=== PATIENT | female | born 1940 | race Caucasian/White ===

== ENCOUNTER 2016-09-09 19:13 | Emergency (ER) | payer MEDICARE, OTHER ==
[~2016-09-09] VITALS: Ht 157.5 cm; Wt 81.6 kg
[~2016-09-09 19:13] MED LIST: ALEN70TA45 PO; BLOO-668 IN; DEXL60CA3 PO; MECL-102 PO; MELO-264 PO; METF500T7 PO; METO-295 PO; OLOP2.5D EACHEYE; RANI150T8 PO; SERT50TA12 PO; SIMV20TA6 PO; TIMO5DRO4 EACHEYE; TRAM50TA2 PO; VALS1TAB50 PO
[2016-09-09 19:36] VITALS: BP 141/71
== END 2016-09-09 20:26 | disposition home or self-care (01) ==
LOC: ER 19:13
DX: B02.29 Other postherpetic nervous system involvement (principal); B02.9 Zoster without complications; E78.00 Pure hypercholesterolemia, unspecified; R20.2 Paresthesia of skin; I10 Essential (primary) hypertension; K21.9 Gastro-esophageal reflux disease without esophagitis; E11.9 Type 2 diabetes mellitus without complications
CPT/HCPCS: 99283; A4606; Z7610

== ENCOUNTER 2016-10-11 20:03 | Emergency (ER) | payer MEDICARE, OTHER ==
[~2016-10-11] VITALS: Ht 152.4 cm; Wt 81.6 kg
[2016-10-11 21:12] VITALS: BP 142/73
== END 2016-10-11 22:35 | disposition home or self-care (01) ==
LOC: ER 20:11
DX: R22.0 Localized swelling, mass and lump, head (principal); E11.9 Type 2 diabetes mellitus without complications; E78.00 Pure hypercholesterolemia, unspecified; K21.9 Gastro-esophageal reflux disease without esophagitis; I10 Essential (primary) hypertension
CPT/HCPCS: A4606; Z7502; Z7610

== ENCOUNTER 2019-06-02 19:51 | Emergency (ER) | payer MEDICARE, OTHER ==
[~2019-06-02] VITALS: Ht 162.6 cm; Wt 83.5 kg
[~2019-06-02 19:51] MED LIST changes: -ALEN70TA45 PO; +ALEN70TA6 PO; +MELO-107 PO; -MELO-264 PO; +METF500T20 PO; -METF500T7 PO; +SIMV-46 PO; -SIMV20TA6 PO; -VALS1TAB50 PO; +VALS1TAB6 PO
[2019-06-02 19:59] VITALS: BP 164/96
[2019-06-02] MEDS ORDERED: ACETAMINOPHEN 325 MG TABLET PO ONE (22:00)
[2019-06-02] MEDS ORDERED: ACETAMINOPHEN 325 MG TABLET ONE (22:14)
== END 2019-06-02 22:21 | disposition home or self-care (01) ==
LOC: ER 19:58
DX: S42.292A Other displaced fracture of upper end of left humerus, initial encounter for closed fracture (principal); F03.90 Unspecified dementia, unspecified severity, without behavioral disturbance, psychotic disturbance, mood disturbance, and anxiety; I10 Essential (primary) hypertension; E78.00 Pure hypercholesterolemia, unspecified; K21.9 Gastro-esophageal reflux disease without esophagitis; E11.9 Type 2 diabetes mellitus without complications; F32.9 Major depressive disorder, single episode, unspecified; F41.9 Anxiety disorder, unspecified; Z98.890 Other specified postprocedural states; Z79.84 Long term (current) use of oral hypoglycemic drugs; Z79.899 Other long term (current) drug therapy; W01.0XXA Fall on same level from slipping, tripping and stumbling without subsequent striking against object, initial encounter; Y93.01 Activity, walking, marching and hiking; Y92.481 Parking lot as the place of occurrence of the external cause; Y99.8 Other external cause status
CPT/HCPCS: 73000-TC; 73020; 73060-TC; 73564-TC

== ENCOUNTER 2019-11-10 17:41 | Inpatient (IN) | payer MEDICARE, OTHER ==
[~2019-11-10] VITALS: Ht 157.5 cm; Wt 69.6 kg
[~2019-11-10 17:41] MED LIST changes: -MECL-102 PO; +MECL-159 PO
--- NOTE | 2019-11-10 18:00 | NUR ---
PT BIB SON C/O LOWER BACK PAIN, UNABLE TO AMBULATE SINCE SATURDAY. EPIDURAL SHOT YESTERDAY, PT IS AAOX3 NEPALI SPEAKING ONLY, NOT IN RESPIRATORY DISTRESS, HOOKED TO CONTACT AND SERVICE CLERKS SUPERVISOR, KEPT RESTED AND COMFORTABLE, WILL CONTINUE TO MONITOR.
--- NOTE | 2019-11-10 18:02 | NUR ---
AT BEDSIDE FOR EVAL.
--- NOTE | 2019-11-10 18:15 | NUR ---
PT IV LINE ESTABLISHED, BLOOD DRAWN AND SENT TO LAB.
[2019-11-10 18:23] LABS: BASOPHILS # (AUTO) 0.1 /CMM (0.0-0.2); BASOPHILS % (AUTO) 0.4 % (0.0-2.0); EOSINOPHILS % (AUTO) 0.6 % (0.0-6.0); HEMATOCRIT 33 % (33-45); HEMOGLOBIN 10.6 g/dL (11.5-14.8); LYMPHOCYTES # (AUTO) 1.3 /CMM (0.8-4.8); LYMPHOCYTES % (AUTO) 6.9 % (20.0-44.0); MEAN CORPUSCULAR HGB CONC 32 g/dl (31.0-36.0); MEAN CORPUSCULAR VOLUME 81 fL (82-100); MONOCYTES # (AUTO) 0.8 /CMM (0.1-1.30); MONOCYTES % (AUTO) 4.4 % (2.0-12.0); NEUTROPHILS # (AUTO) 16.3 /CMM (1.8-8.9); NEUTROPHILS % (AUTO) 87.7 % (43.0-81.0); PLATELET COUNT (AUTO) 498 /CMM (150-450); RED BLOOD CELL COUNT(AUTO) 4.09 MIL/uL (4.0-5.2); WHITE BLOOD COUNT (AUTO) 18.6 K/uL (4.3-11.0)
--- NOTE | 2019-11-10 18:23 | NUR ---
BRAZE OPERATOR AT BEDSIDE FOR XRAY.
[2019-11-10] MEDS ORDERED: MORPHINE SULFATE INJ 4 MG/ML DISP.SYRIN ONE (18:25)
[2019-11-10] MEDS ORDERED: ONDANSETRON HCL/PF 4 MG/2 ML VIAL ONE (18:25)
--- NOTE | 2019-11-10 18:25 | NUR ---
PT IS WHEELED TO CT SCAN VIA [facility].
[2019-11-10] MEDS ORDERED: MORPHINE SULFATE INJ 2 MG/ML DISP.SYRIN IV ONE (18:30)
[2019-11-10] MEDS ORDERED: ONDANSETRON HCL/PF 4 MG/2 ML VIAL IVP ONE (18:30)
[2019-11-10 18:41] LABS: ALANINE AMINOTRANSFERASE 52 U/L (12-78); ALBUMIN 2.4 g/dL (3.4-5.0); ALKALINE PHOSPHATASE 167 U/L (46-116); ASPARTATE AMINOTRANSFERASE 50 U/L (15-37); BILIRUBIN,DIRECT 0.2 mg/dL (0.0-0.2); BILIRUBIN,TOTAL 0.7 mg/dL (0.2-1.0); CALCIUM, SERUM 9.6 mg/dL (8.5-10.1); CARBON DIOXIDE 24 mmol/L (21-32); CHLORIDE 94 mmol/L (98-107); CREATININE 0.8 mg/dL (0.6-1.3); GLUCOSE 153 mg/dL (74-106); SODIUM SERUM 131 mmol/L (136-145); TOTAL PROTEIN, SERUM 8.4 g/dL (6.4-8.2); UREA NITROGEN, BLOOD 19 mg/dL (7-18)
[2019-11-10 18:53] LABS: APPEARANCE,URINE Clear (CLEAR); BILIRUBIN,URINE Negative (NEGATIVE); BLOOD, URINE Trace-intact Ery/uL (NEGATIVE); COLOR,URINE Yellow (YELLOW); KETONES,URINE Negative (NEGATIVE); LEUKOCYTE ESTERASE ,URINE Negative (NEGATIVE); NITRITE, URINE Negative (NEGATIVE); PROTEIN,URINE Trace mg/dl (NEGATIVE); UGLUCOSE Negative (NEGATIVE); UROBILINOGEN,URINE 0.2 EU/dL (0.2)
[2019-11-10 19:04] LABS: THYROID STIMULATING HORMONE 1.487 uIU/mL (0.358-3.74)
--- NOTE | 2019-11-10 19:10 | NUR ---
REPORT GIVEN TO LISBETH ROJAS FOR BELINDA.
[2019-11-10 19:12] LABS: BACTERIA,URINE Few /HPF (None Seen); SQUAMOUS EPITHELIAL CELL,UR Few /HPF (None Seen); WBC,URINE NONE SEEN /HPF (0-3)
--- NOTE | 2019-11-10 19:53 | NUR ---
Patient is resting comfortably in Bed. Easily aroused. VSS. Son at bedside.
[2019-11-10] MEDS ORDERED: Z GUARD REMEDY 2 OZ OINT TP PRN (20:30)
[2019-11-10] MEDS ORDERED: MAG HYDROX/AL HYDROX/SIMETH 30 ML UDC PO PRN (20:30)
[2019-11-10] MEDS ORDERED: ACETAMINOPHEN 325 MG TABLET PO PRN (20:30)
[2019-11-10] MEDS ORDERED: ONDANSETRON HCL/PF 4 MG/2 ML VIAL IVP PRN (20:30)
--- NOTE | 2019-11-10 21:22 | NUR ---
REPORT GIVEN TO JONI BOB FOR BELINDA
[2019-11-10] MEDS ORDERED: ACET-54 PO (21:49)
[2019-11-10] MEDS ORDERED: ESCI20TA PO (21:49)
[2019-11-10] MEDS ORDERED: AMAN100T PO (21:49)
[2019-11-10] MEDS ORDERED: OMEP40CA13 PO (21:49)
[2019-11-10] MEDS ORDERED: SIMV-46 PO (21:49)
[2019-11-10] MEDS ORDERED: LORA-258 PO (21:49)
[2019-11-10] MEDS ORDERED: HYDR12.55 PO (21:49)
[2019-11-10] MEDS ORDERED: AMLO5TAB9 PO (21:49)
[2019-11-10 21:50] VITALS: BP 124/64
--- NOTE | 2019-11-10 21:50 | NUR ---
MS RN NOTES PATIENT ARRIVED TO THE UNIT AT 2150 VIA ACLS PROTOCOL. ESTONIAN SPEAKING ONLY. PATIENT ALERT AND ORIENTED X 3. PATIENT ON ROOM AIR, NO SIGNS OF DIFFICULTY BREATHING, SOB, AND WITH EVEN NON-LABORED BREATHING. PATIENT IV ACCESS ON RIGHT HAND 22G INTACT AND PATENT. PATIENT COMPLAINS OF LOWER BACK PAIN. PROVIDED COMFORT MEASURES TO PATIENT. SAFETY PRECAUTIONS IMPLEMENTED WITH THE BED IN THE LOWEST POSITION, BED LOCKED, BED ALARM ON, BILATERAL SIDE RAILS UP, AND CALL LIGHT WITHIN EASY REACH OF THE PATIENT. WILL CONTINUE TO MONITOR PATIENT.
[2019-11-10 22:00] VITALS: BP 123/64
[2019-11-10] MEDS: IV NS 0.9% 1,000 ML IV PRN (22:19)
[2019-11-10] MEDS: CEFTRIAXONE 1 G in IV D5W 50 ML IV SCH (22:19)
[2019-11-11] MEDS: MORPHINE SULFATE INJ 2 MG/ML DISP.SYRIN IV PRN ×5 (00:01→21:11)
--- NOTE | 2019-11-11 00:02 | NUR ---
MS RN NOTES PATIENT COMPLAINING OF 10/10 LOWER BACK PAIN, PROVIDED COMFORT MEASURES TO PATIENT PRIOR ADMINISTERING PRN IV MORPHINE 2mg/ml. PATIENT VITAL SIGNS WNL. BLOOD PRESSURE 124/64 PULSE 93 RESPIRATORY RATE 18 TEMPERATURE 98.7 SPO2 97%. WILL CONTINUE TO MONITOR AND REASSESS PATIENT PAIN LEVEL.
--- NOTE | 2019-11-11 05:39 | NUR ---
MS RN NOTES PATIENT MOANING AND GRASPING LOWER BACK, STATING SHE IS IN A LOT OF PAIN. PATIENTS STATES HER PAIN LEVEL IS 10/10. ADMINISTERED PRN PAIN, MEDICATION MORPHINE 2mg/ml. WILL CONTINUE TO MONITOR AND REASSESS PATIENT PAIN.
--- NOTE | 2019-11-11 06:16 | NUR ---
MS RN NOTES PATIENT STATES SHE IS UNCOMFORTABLE AND HAVING TROUBLE VOIDING. INFORMED AND NOTIFIED DEO AMIN NP ORDERED TO DO STRAIGHT CATHETERIZATION EVERY 4HR DUE TO URINARY RETENTION. WILL CONTINUE TO MONITOR PATIENT.
--- NOTE | 2019-11-11 06:55 | NUR ---
MS RN NOTES BLADDER SCAN DONE PRIOR STRAIGHT CATHETERIZATION. STRAIGHT CATHETER COMPLETED WITH 700 URINE OUTPUT WAS CLEAR, TEA COLOR/YELLOW URINE. WILL CONTINUE TO MONITOR PATIENT.
[2019-11-11 07:29] LABS: BASOPHILS % (AUTO) 0.3 % (0.0-2.0); EOSINOPHILS % (AUTO) 0.3 % (0.0-6.0); HEMATOCRIT 30 % (33-45); HEMOGLOBIN 9.6 g/dL (11.5-14.8); LYMPHOCYTES # (AUTO) 1.7 /CMM (0.8-4.8); LYMPHOCYTES % (AUTO) 12.3 % (20.0-44.0); MEAN CORPUSCULAR HGB CONC 32 g/dl (31.0-36.0); MEAN CORPUSCULAR VOLUME 81 fL (82-100); MONOCYTES # (AUTO) 0.7 /CMM (0.1-1.30); MONOCYTES % (AUTO) 5.2 % (2.0-12.0); NEUTROPHILS # (AUTO) 11.2 /CMM (1.8-8.9); NEUTROPHILS % (AUTO) 81.9 % (43.0-81.0); PLATELET COUNT (AUTO) 435 /CMM (150-450); WHITE BLOOD COUNT (AUTO) 13.7 K/uL (4.3-11.0)
--- NOTE | 2019-11-11 07:37 | NUR ---
MS RN NOTES PATIENT IN BED RESTING, EASILY AWAKEN BY NAME AND LIGHT TOUCH, ALERT AND ORIENTED X 3. PATIENT ON ROOM AIR WITH NO SIGNS OF SOB, AND WITH EVEN NON-LABORED BREATHING. PATIENT IV ACCESS IN PLACE AND INTACT RUNNING NS AT 75ml/hr. STRAIGHT CATHETER DONE, URINE OUTPUT OF 700ml. PATIENT SKIN KEPT CLEAN AND DRY. MET ALL OF PATIENT'S NEEDS. PROVIDED COMFORT MEASURES TO PATIENT. SAFETY PRECAUTIONS IMPLEMENTED WITH BED IN THE LOWEST POSITION, BILATERAL SIDE RAILS UP, BED ALARM ON, BED LOCKED AND CALL LIGHT WITHIN EASY REACH OF THE PATIENT. WILL ENDORSE PLAN OF CARE TO UPCOMING DAYSHIFT NURSE.
[2019-11-11 08:00] VITALS: BP 135/67
[2019-11-11 08:00] LABS: CALCIUM, SERUM 8.7 mg/dL (8.5-10.1); CREATININE 0.7 mg/dL (0.6-1.3); MAGNESIUM 1.8 mg/dL (1.8-2.4); PHOSPHORUS 3.9 mg/dL (2.5-4.9); POTASSIUM 3.6 mmol/L (3.5-5.1)
[2019-11-11 08:05] LABS: THYROID STIMULATING HORMONE 1.332 uIU/mL (0.358-3.74)
[2019-11-11] MEDS: PANTOPRAZOLE 40 MG TABLET.DR PO SCH (08:35)
[2019-11-11] MEDS: ENOXAPARIN SODIUM 40 MG/0.4 ML DISP.SYRIN SQ SCH (08:41)
--- NOTE | 2019-11-11 13:00 | NUR ---
MS RN NOTES SPOKE TO PATIENTS SON ASKING IF HAS ANY INFORMATION ON THE STIMULATOR THAT PATIENT HAS, SON STATES HE DOES NOT BUT HIS MOM HAS HAD MRI AFTER THE STIMULATOR WAS PLACED. CORRECTIONAL MEDICINE PHYSICIAN MADE AWARE WILL CONTINUE WITH MRI. PATIENT ALSO STATES SHE HAS HAD AN MRI AFTER THE STIMULATOR. WILL CONTINUE TO MONITOR.
--- NOTE | 2019-11-11 13:30 | NUR ---
MS RN NOTES SPOKE TO DR. LONA BOURGEOIS OFFICE WITH THE NURSE STATES STIMULATOR DOES NOT HAVE A BATTERY AND ITS OK FOR MRI. PATIENT TRANSFERRED TO MRI.
[2019-11-11] MEDS: IV NS 0.9% 1,000 ML IV PRN (14:34)
--- NOTE | 2019-11-11 16:30 | NUR ---
MS RN NOTES CALL RECEIVED FROM RADIOLOGY TO REPORT RESULTS OF MRI HAD RADIOLOGIST REPORT RESULTS TO DR. FLORIAN WHO HAS ASSESSED PATIENT. DR. FLORIAN STATES HE COMMUNICATED RESULTS TO DR. BHAGAT. WILL CONTINUE TO MONITOR.
[2019-11-11] MEDS: METHOCARBAMOL (500MG) 500 MG TABLET PO SCH (16:47)
--- NOTE | 2019-11-11 17:31 | NUR ---
MS RN NOTES BLADDER SCANNED NOTED WITH 700ML OF URINE IN BLADDER DR. BHAGAT MADE AWARE ORDERS OBTAINED FOR PIKE CATH. PIKE CATH INSERTED. PATIENT TOLERATED PROCEDURE WELL.
--- NOTE | 2019-11-11 18:52 | NUR ---
MS RN NOTES PATIENT IN BED RESTING NO SOB OR ACUTE DISTRESS NOTED. PATIENT ALERT, ORIENTED X3 ALBANIAN SPEAKING. PATIENT WITH INTACT PERIPHERAL IV, INTACT PATENT. PIKE CATH INTACT PATENT. DRAINING YELLOW CLEAR URINE. PATIENTS PAIN WAS CONTROLLED. ALL DUE MEDICATIONS ADMINISTERED. ALL NEEDS MET. WILL ENDORSE CARE TO PM SHIFT.
--- NOTE | 2019-11-11 19:40 | NUR ---
MS RN NOTES RECEIVED ON BED A/O X3,SPEAK VATICAN CITIZEN ,UNDERSTAND LITTLE SOUTH KOREAN,SALINE LOCK RIGHT HAND INTACT AND PATENT,NS AT 75 ML/HR RATE IN PROGRESS.PIKE CATH IN PLACE DRAINING YELLOWISH OUTPUT.C/O BACK PAIN,TOLERABLE AT THE MOMENT.DUE MEDS GIVEN,TAKEN WELL,NEGATIVE FOR ASPIRATION.CALL LIGHT IN REACH,NEEDS ANTICIPATED.
[2019-11-11] MEDS: FOLIC ACID 1 MG TABLET PO SCH (19:53)
[2019-11-11 20:00] VITALS: BP 119/64
[2019-11-11] MEDS: CEFTRIAXONE 1 G in IV D5W 50 ML IV SCH (20:51)
[2019-11-11] MEDS: SIMVASTATIN 20 MG TABLET PO SCH (21:11)
--- NOTE | 2019-11-11 21:11 | NUR ---
MS RN NOTES PAIN MANAGEMENT C/P MID BACK PAIN 8/10 ON PAIN SCALE,MEDICATED WITH MORPHINE 2MG IV ORDERED
[2019-11-11] MEDS: HYDROCODONE/APAP 5/325MG 1 EACH TABLET PO PRN (23:26)
--- NOTE | 2019-11-11 23:26 | NUR ---
MS RN NOTES PAIN MANAGEMENT HAVING PAIN AGAIN 7/10 ON PAIN SCALE,MEDICATED WITH NORCO 5/325MG,1 TAB PO ORDERED.
--- NOTE | 2019-11-12 00:55 | NUR ---
MS RN NOTES PAIN MANAGEMENT REPOSITION,IN SO MUCH PAIN 1-/10 ON PAIN SCALE,MEDICATED WITH NORCO 10/325,1 TAB GIVEN ORDERED.
[2019-11-12] MEDS: METHOCARBAMOL (500MG) 500 MG TABLET PO SCH ×3 (02:04→18:22)
[2019-11-12] MEDS: IV NS 0.9% 1,000 ML IV PRN ×2 (04:04→22:06)
--- NOTE | 2019-11-12 05:00 | NUR ---
MS RN NOTES STARTED ON 24 HOUR URINE FOR UPEP AND IFA.
--- NOTE | 2019-11-12 06:21 | NUR ---
MS RN NOTES ON BED SLEEPING.NORCO EFFECTIVE FOR PAIN MANAGEMENT.REFUSED REPOSITIONING DUE TO CHRONIC MID BACK PAIN.IVF IN PROGRESS,SITE REMAINS PATENT ON RIGHT HAND.CALL LIGHT IN REACH,NEEDS ATTENDED.
[2019-11-12 07:01] LABS: THYROID STIMULATING HORMONE 1.037 uIU/mL (0.358-3.74)
[2019-11-12 08:00] VITALS: BP 134/66
[2019-11-12] MEDS: FOLIC ACID 1 MG TABLET PO SCH (08:02)
[2019-11-12] MEDS: PANTOPRAZOLE 40 MG TABLET.DR PO SCH (08:02)
[2019-11-12] MEDS: HYDROCODONE/APAP 5/325MG 1 EACH TABLET PO PRN ×2 (08:03→20:10)
--- NOTE | 2019-11-12 08:03 | NUR ---
MS/RN NOTE THE PATIENT COMPLIANCE OF BACK PAIN 04/04. NORCO 5/325 1 TAB PO GIVEN. WILL CONTINUE TO MONITOR.
[2019-11-12] MEDS: ENOXAPARIN SODIUM 40 MG/0.4 ML DISP.SYRIN SQ SCH (08:10)
[2019-11-12 08:18] LABS: BASOPHILS # (AUTO) 0.1 /CMM (0.0-0.2); BASOPHILS % (AUTO) 0.5 % (0.0-2.0); EOSINOPHILS % (AUTO) 0.8 % (0.0-6.0); HEMATOCRIT 32 % (33-45); HEMOGLOBIN 10.1 g/dL (11.5-14.8); LYMPHOCYTES # (AUTO) 2.3 /CMM (0.8-4.8); LYMPHOCYTES % (AUTO) 22.5 % (20.0-44.0); MEAN CORPUSCULAR HGB CONC 32 g/dl (31.0-36.0); MEAN CORPUSCULAR VOLUME 81 fL (82-100); MONOCYTES # (AUTO) 0.7 /CMM (0.1-1.30); MONOCYTES % (AUTO) 6.9 % (2.0-12.0); NEUTROPHILS % (AUTO) 69.3 % (43.0-81.0); PLATELET COUNT (AUTO) 447 /CMM (150-450); RED BLOOD CELL COUNT(AUTO) 3.96 MIL/uL (4.0-5.2); WHITE BLOOD COUNT (AUTO) 10.1 K/uL (4.3-11.0)
[2019-11-12 08:21] LABS: CALCIUM, SERUM 8.6 mg/dL (8.5-10.1); CREATININE 0.7 mg/dL (0.6-1.3); MAGNESIUM 1.7 mg/dL (1.8-2.4); PHOSPHORUS 3.6 mg/dL (2.5-4.9)
--- NOTE | 2019-11-12 09:03 | NUR ---
MS/RN NOTE THE PATIENT VERBALIZED NORCO 5/325 1 TAB BEING EFFECTIVE AND RATED BACK PAIN 1/10.
--- NOTE | 2019-11-12 09:19 | NUR ---
MS/RN NOTE NEW ORDER FROM DR BHAGAT FOR CARDIAC DIET. NOTED AND CARRIED OUT
[2019-11-12] MEDS: MORPHINE SULFATE INJ 2 MG/ML DISP.SYRIN IV PRN ×3 (10:57→23:18)
--- NOTE | 2019-11-12 10:57 | NUR ---
MS/RN NOTE. THE PATIENT COMPLAINS OF BACK PAIN 05/05. MORPHINE SULFATE 2 MG IV PUSH GIVEN. WILL CONTINUE TO MONITOR.
--- NOTE | 2019-11-12 11:09 | NUR ---
MS/RN NOTE THE PATIENT IS TAKE TO RADIOLOGY DEPARTMENT FOR XR. THE PATIENT LEFT THE UNIT IN NO APPARENT DISTRESS.
--- NOTE | 2019-11-12 11:27 | NUR ---
MS/RN NOTE THE PATIENT VERBALIZED MORPHINE SULFATE BEING EFFECTIVE AND RATED PAIN 2/10.
--- NOTE | 2019-11-12 12:20 | NUR ---
MS/RN NOTE THE PATIENT IS BACK TO UNIT FROM RADIOLOGY DEPARTMENT. THE PATIENT DENIES PAIN. THE PATIENT IS IN NO APPRENT DISTRESS.
[2019-11-12] MEDS: Magnesium 1GM/D5W 100ML PREMIX 100 ML IV SCH ×2 (12:32→14:16)
[2019-11-12] MEDS: HYDROCODONE/APAP 10/325MG 1 EA TABLET PO PRN (14:20)
[2019-11-12 16:00] VITALS: BP_SYST 124; BP_SYST 141; BP_DIAS 63; BP_DIAS 74
[2019-11-12] MEDS ORDERED: GADOTERIDOL 279.3 MG/ML VIAL IV ONE (16:46)
--- NOTE | 2019-11-12 19:00 | NUR ---
MS/RN NOTE THE PATIENT IS ALERT AND ORIENTED X3. IN ROOM AIR AND SATURATION IS AT 97%. DENIES SOB. RESPIRATION REGULAR AND UNLABORED. DENIES PAIN. THE PATIENT IN NO APPARENT DISTRESS. RIGHT HAND G 20 PATENT AND NS INFUSING AT 75ML/HR AND NO S/S INFILTRATION NOTED. BED LOW AND LOCKED. SIDE RAILS UP X3. CALL LIGHT WITHIN REACH. WILL ENDORSE TO INTEGRATED MARKETING INTERN.
--- NOTE | 2019-11-12 19:26 | NUR ---
MS RN NOTES RECEIVED ON BED A/O X3,SPEAK JAPANESE,PAIN TOLERABLE AT THE MOMENT,IVF NS AT 75ML/HR RATE IN PROGRESS ON LEFT HAND VIA IV PUMP,SITE PATENT.CALL LIGHT IN REACH,NEEDS ANTICIPATED.
[2019-11-12 20:00] VITALS: BP 141/68
--- NOTE | 2019-11-12 20:00 | NUR ---
MS RN NOTES MD VISIT SEEN BY DR HARRIS,INFORMED PATIENT SON ABOUT BACTERIA IN THE BLOOD PER BLOOD CULTURE RESULT.WILL START ON IV VANCOMYCIN ORDERED BY DR BHAGAT,DAYTIME HOSPITALIST.
--- NOTE | 2019-11-12 20:10 | NUR ---
MS RN NOTES PAIN MANAGEMENT C/O MID LOWER BACK PAIN 7/10 ON PAIN SCALE,MEDICATED WITH NORCO 5/325,1 TAB PO GIVEN WITH APPLE SAUCE,TAKEN WELL
[2019-11-12] MEDS ORDERED: FEE PK DOSING 1 MIN EA MC ONE (20:35)
[2019-11-12] MEDS: CEFTRIAXONE 1 G in IV D5W 50 ML IV SCH (20:48)
[2019-11-12] MEDS ORDERED: VANCOMYCIN 1.25 GM in IV D5W 250 ML IV ONE (22:00)
--- NOTE | 2019-11-12 22:00 | NUR ---
MS RN NOTES STARTED ON VANCOMYCIN 1.25MG IV ORDERED.
[2019-11-12] MEDS: SIMVASTATIN 20 MG TABLET PO SCH (22:01)
--- NOTE | 2019-11-12 23:00 | NUR ---
MS RN NOTES OFFERED REPOSITIONING BUT REFUSED
--- NOTE | 2019-11-12 23:18 | NUR ---
MS RN NOTES PAIN MANAGEMENT CO MID LOWER BACK APIN,MEDICATED WITH MORPHINE 2MG IV ORDERED.
[2019-11-13] MEDS: METHOCARBAMOL (500MG) 500 MG TABLET PO SCH ×3 (00:21→15:36)
[2019-11-13] MEDS: HYDROCODONE/APAP 10/325MG 1 EA TABLET PO PRN ×3 (00:55→21:20)
[2019-11-13] MEDS: LIDOCAINE 5% (PATCH) 1 EA PATCH TP SCH ×2 (02:05→06:01)
[2019-11-13] MEDS: MORPHINE SULFATE INJ 2 MG/ML DISP.SYRIN IV PRN ×4 (04:12→19:59)
--- NOTE | 2019-11-13 04:12 | NUR ---
MS RN NOTES AWAKE,C/O INTRACTABLE LOWER BACK PAIN,MEDICATED WITH MORPHINE 2MG IV ORDERED.
--- NOTE | 2019-11-13 05:00 | NUR ---
MS RN NOTES 24 HOUR COLLECTION COMPLETED FOR UPEP + IFA.OBTAIN 2500ML SENT TO LAB.
[2019-11-13 06:06] LABS: IMMUNOGLOBULIN A, SERUM 417 mg/dL (64-422); IMMUNOGLOBULIN G, SERUM 1386 mg/dL (700-1600); IMMUNOGLOBULIN M, SERUM 110 mg/dL (26-217)
--- NOTE | 2019-11-13 06:26 | NUR ---
MS RN NOTES ON BED SLEEPING,AROUSABLE TO VERBAL STIMULI.STILL WITH ON AND OFF MID LOWER BACK PAIN,STARTED ON LIDODERM PATCH 5% AT 0600.IV ABX TOLERATED WELL.IN NO ACUTE DISTRESS.WILL ENDORSE TO DAY NURSE FOR BELINDA.
[2019-11-13 06:30] LABS: BASOPHILS # (AUTO) 0.1 /CMM (0.0-0.2); BASOPHILS % (AUTO) 0.7 % (0.0-2.0); EOSINOPHILS % (AUTO) 0.8 % (0.0-6.0); HEMATOCRIT 31 % (33-45); HEMOGLOBIN 9.9 g/dL (11.5-14.8); LYMPHOCYTES % (AUTO) 19.6 % (20.0-44.0); MEAN CORPUSCULAR HGB CONC 32 g/dl (31.0-36.0); MEAN CORPUSCULAR VOLUME 81 fL (82-100); MONOCYTES # (AUTO) 0.6 /CMM (0.1-1.30); MONOCYTES % (AUTO) 5.8 % (2.0-12.0); NEUTROPHILS # (AUTO) 7.6 /CMM (1.8-8.9); NEUTROPHILS % (AUTO) 73.1 % (43.0-81.0); PLATELET COUNT (AUTO) 447 /CMM (150-450); RED BLOOD CELL COUNT(AUTO) 3.86 MIL/uL (4.0-5.2); WHITE BLOOD COUNT (AUTO) 10.3 K/uL (4.3-11.0)
[2019-11-13 06:46] LABS: CALCIUM, SERUM 8.2 mg/dL (8.5-10.1); CREATININE 0.6 mg/dL (0.6-1.3); MAGNESIUM 1.9 mg/dL (1.8-2.4); PHOSPHORUS 3.6 mg/dL (2.5-4.9); POTASSIUM 3.9 mmol/L (3.5-5.1)
[2019-11-13 07:06] LABS: AFP, TUMOR MARKER 1.5 ng/mL (0.0-8.3)
[2019-11-13] MEDS: PANTOPRAZOLE 40 MG TABLET.DR PO SCH (07:30)
[2019-11-13 08:00] VITALS: BP_SYST 135; BP_DIAS 62; BP_DIAS 66
[2019-11-13] MEDS: FOLIC ACID 1 MG TABLET PO SCH (08:44)
[2019-11-13] MEDS: ENOXAPARIN SODIUM 40 MG/0.4 ML DISP.SYRIN SQ SCH (08:48)
--- NOTE | 2019-11-13 11:00 | NUR ---
Patient's family wants to contact with hospitalist. Paged pt's daughter number for updates .
[2019-11-13 11:06] LABS: *SPE A/G RATIO 0.5 (0.7-1.7); *SPE ALBUMIN 2.2 g/dL (2.9-4.4); *SPE ALPHA-1-GLOBULIN 0.5 g/dL (0.0-0.4); *SPE ALPHA-2-GLOBULIN 1.3 g/dL (0.4-1.0); *SPE BETA GLOBULIN 1.1 g/dL (0.7-1.3); *SPE GLOBULIN, TOTAL 4.1 g/dL (2.2-3.9); *SPE M-SPIKE Not Observed g/dL (Not Observed); *SPEGAMMA GLOBULIN 1.3 g/dL (0.4-1.8)
[2019-11-13] MEDS: HYDROCODONE/APAP 5/325MG 1 EACH TABLET PO PRN (12:47)
[2019-11-13] MEDS: IV NS 0.9% 1,000 ML IV PRN (13:58)
--- NOTE | 2019-11-13 15:20 | NUR ---
spoke with the family and explained plan of care as family requested
[2019-11-13] MEDS: MAGNESIUM HYDROXIDE 30 ML UDC PO PRN (15:36)
[2019-11-13 16:00] VITALS: BP 156/68
[2019-11-13] MEDS ORDERED: VANCOMYCIN 1 GM in IV D5W 250 ML IV SCH (16:00)
--- NOTE | 2019-11-13 18:40 | NUR ---
patient ON BED, FLAT POSITION,A/O X3,SPEAK MALAWIAN,PAIN TOLERABLE AT THE MOMENT,IVF NS AT 75ML/HR RATE IN PROGRESS ON LEFT HAND VIA IV PUMP,SITE PATENT.CALL LIGHT IN REACH,NEEDS ANTICIPATED, PAIN MANAGEMENT IMPLEMENTED.PATIENT REFUSING TO BE TURNED AND REPOSITIONED
--- NOTE | 2019-11-13 19:16 | NUR ---
MS/RN OPENING NOTES RECEIVED PATIENT IN BED, AWAKE, ALERT X3, SLOVAK SPEAKING , ABLE TO MAKE GOOD EYE CONTACT AND RESPOND WITH NOD , NO GUARDING OR GRIMACE OBSERVED AT THIS TIME, OBSERVE LYING DOWN FLAT .
[2019-11-13 20:00] VITALS: BP 141/58
--- NOTE | 2019-11-13 20:00 | NUR ---
MS/RN NOTES PATIENT REPORTED OF SEVERE PAIN, VITAL SIGNS CHECK, AWAKE, ALERT X3.
[2019-11-13 20:21] VITALS: BP 141/58
[2019-11-13] MEDS: CEFTRIAXONE 2 G in IV D5W 100 ML IV SCH (20:38)
[2019-11-13] MEDS ORDERED: CEFTRIAXONE 2 G in IV D5W 50 ML IV SCH (21:00)
[2019-11-13] MEDS: SIMVASTATIN 20 MG TABLET PO SCH (21:13)
--- NOTE | 2019-11-13 21:30 | NUR ---
MS/RN NATHAN PATIENT WITH SEVERE PAIN AND BREAK THROUGH PAIN GIVEN COMFORT MEASURES PROVIDED, WARM COMPRESS AND OFFERED DRINK AND SNACK.TO MONITOR.
[2019-11-14] MEDS: METHOCARBAMOL (500MG) 500 MG TABLET PO SCH ×3 (01:38→16:28)
[2019-11-14] MEDS: LIDOCAINE 5% (PATCH) 1 EA PATCH TP SCH (02:24)
[2019-11-14 03:08] LABS: CARBOHYDRATE AG 19-9 7 U/mL (0-35)
[2019-11-14] MEDS: MORPHINE SULFATE INJ 2 MG/ML DISP.SYRIN IV PRN ×2 (03:59→10:39)
--- NOTE | 2019-11-14 04:04 | NUR ---
MS/RN NOTES PATIENT AWAKEN FROM SLEEP. WITH PAIN, MORPHINE 2MG/REQUESTER PRESCRIBED NEEDED. TO MONITOR. REFUSE TO BE TURNED DUE TO PAIN.
[2019-11-14] MEDS: IV NS 0.9% 1,000 ML IV PRN ×2 (04:10→21:01)
[2019-11-14] MEDS: HYDROCODONE/APAP 10/325MG 1 EA TABLET PO PRN (05:59)
--- NOTE | 2019-11-14 06:02 | NUR ---
MS/RN NOTES BREAK THROUGH PAIN REQUESTED FOR PAIN IN LOWER BACK. NEEDED NORCO 10-325 MG PO FOR SEVERE PAIN. TOLERATED MEDICATION WITH WATER.
--- NOTE | 2019-11-14 06:24 | NUR ---
324-2 MS/RN CLOSING NOTES PATIENT SLEPT INTERNITENTLY WITH PAIN BEING MANAGED BY PRESCRIBED MEDICATION OF MORPHINE IVP AND NORCO 10-325 MG PO FOR BREAKTHROUGH. MONITORED FOR PAIN RELIEF. PATIENT REFUSED TO BE TURNED, ON PIKE CATHETER DRAIN YELLOW COLOR URINE. BED LOCKED, CALL LIGHTS WITHIN REACH. WILL ENDORSE TO AM RN FOR BELINDA.
[2019-11-14 07:16] LABS: CALCIUM, SERUM 8.3 mg/dL (8.5-10.1); CREATININE 0.6 mg/dL (0.6-1.3); POTASSIUM 4.2 mmol/L (3.5-5.1)
--- NOTE | 2019-11-14 07:33 | NUR ---
MS RN OPENING NOTES RECEIVED PATIENT IN BED, ASLEEP. PATIENT ON ROOM AIR BREATHING NORMAL WITH NO SIGNS OF ACUTE DISTRESS OR SOB AT THIS TIME. NO SIGNS OF PAIN SUCH FACIAL GRIMACING OR GUARDING NOTED. PIKE CATH IN PLACE; YELLOW URINE DRAINING TO GRAVITY. SAFETY PRECAUTIONS IN PLACE; BED IN LOW POSITION AND LOCKED, RAILS UP X2, CALL LIGHT WITHIN REACH. WILL CONTINUE TO MONITOR PATIENT.
[2019-11-14] MEDS: PANTOPRAZOLE 40 MG TABLET.DR PO SCH (07:47)
[2019-11-14] MEDS: FOLIC ACID 1 MG TABLET PO SCH (08:11)
[2019-11-14] MEDS: ENOXAPARIN SODIUM 40 MG/0.4 ML DISP.SYRIN SQ SCH (08:13)
[2019-11-14 08:18] VITALS: BP 147/59
--- NOTE | 2019-11-14 11:54 | NUR ---
MS RN NOTES PATIENT WAS COMPLAINING OF LOWER BACK PAIN 05/05. PRN MORPHINE WAS GIVE. REASSESSMENT AT 1110 PATIENT SAID IT GOT BETTER. AT THIS MOMENT PATIENT CALLING AND ALMOST CRYING THAT SHE HAS PAIN AGAIN AND NEEDS MORE PAIN RELIEF. DISCUSSED WITH CHARGE NURSE. PRN NORCO 5-325 ADMINISTERED. WILL REASSESS.
[2019-11-14] MEDS: HYDROCODONE/APAP 5/325MG 1 EACH TABLET PO PRN ×2 (11:56→21:21)
[2019-11-14] MEDS: MAGNESIUM HYDROXIDE 30 ML UDC PO PRN (15:11)
[2019-11-14 16:00] VITALS: BP 148/59
--- NOTE | 2019-11-14 19:07 | NUR ---
MS RN CLOSING NOTES PATIENT IN BED, AWAKE, A/O X2, WATCHING TV. PATIENT ON ROOM AIR BREATHING NORMAL WITH NO SIGNS OF ACUTE DISTRESS OR SOB AT THIS TIME. MILD PAIN PRESENT BUT NO REQUEST OF PAIN RELIEF AT THIS TIME. THROUGHOUT THE DAY PRN PAIN MEDICATION ADMINISTERED PER MD ORDER. PIKE CATH IN PLACE; YELLOW URINE DRAINING TO GRAVITY. ALL NEEDS ATTENDED TO THROUGHOUT THE DAY. SAFETY PRECAUTIONS REMAIN IN PLACE; BED IN LOW POSITION AND LOCKED, RAILS UP X2, CALL LIGHT WITHIN REACH. WILL ENDORSE TO LION TRAINER NURSE.
--- NOTE | 2019-11-14 19:25 | NUR ---
MS RN NOTES PATIENT RECEIVED IN BED, ALERT AND ORIENTED X 3, GREEK SPEAKING ONLY. PATIENT ON ROOM AIR WITH NO SIGNS OF RESPIRATORY DISTRESS, NO SIGNS OF SOB, AND WITH EVEN NON-LABORED BREATHING. PATIENT IV ACCESS INTACT AND PATENT RUNNING, NS AT 75ml/hr. PATIENT PIKE IN PLACE AND WITH CLEAR, YELLOW URINE OUTPUT. PROVIDED COMFORT MEASURES TO PATIENT. SAFETY PRECAUTIONS IMPLEMENTED WITH BED IN THE LOWEST POSITION, BILATERAL SIDE RAILS UP, BED LOCKED, BED ALARM ON, AND CALL LIGHT WITHIN EASY REACH OF THE PATIENT. WILL CONTINUE TO MONITOR PATIENT.
[2019-11-14 20:00] VITALS: BP 142/64
[2019-11-14] MEDS: SIMVASTATIN 20 MG TABLET PO SCH (21:08)
[2019-11-14] MEDS: CEFTRIAXONE 2 G in IV D5W 100 ML IV SCH (21:08)
--- NOTE | 2019-11-14 21:21 | NUR ---
MS RN NOTES PATIENT STATES SHARP PAIN LOCATED ON HER LOWER BACK AND ABDOMEN, RATING 7/10. PROVIDED COMFORT MEASURES TO PATIENT. ADMINISTERED PRN PAIN MEDICATION NORCO 5-325, 1 TABLET. VITAL SIGNS 142/64 PULSE 99, RESPIRATORY RATE 18, SPO2 96% ON ROOM AIR. WILL REASSESS PATIENT PAIN LEVEL AND WILL CONTINUE TO MONITOR PATIENT.
[2019-11-15] MEDS: METHOCARBAMOL (500MG) 500 MG TABLET PO SCH ×3 (01:01→16:18)
[2019-11-15] MEDS: MORPHINE SULFATE INJ 2 MG/ML DISP.SYRIN IV PRN ×2 (01:08→15:27)
--- NOTE | 2019-11-15 01:35 | NUR ---
MS RN NOTES PATIENT'S STATING 10/10 SHARP PAIN IN HER BACK. PROVIDED COMFORT MEASURES TO PATIENT, VITAL SIGNS BLOOD PRESSURE 152/58 PULSE 101 AND RESPIRATORY RATE 18. ADMINISTERED IV MORPHINE 2mg/ml, WILL REASSESS PATIENT PAIN LEVEL AND WILL CONTINUE TO MONITOR PATIENT.
[2019-11-15] MEDS: LIDOCAINE 5% (PATCH) 1 EA PATCH TP SCH (01:42)
[2019-11-15] MEDS: HYDROCODONE/APAP 10/325MG 1 EA TABLET PO PRN ×3 (04:03→18:26)
[2019-11-15] MEDS: HYDROCODONE/APAP 5/325MG 1 EACH TABLET PO PRN (07:00)
--- NOTE | 2019-11-15 07:08 | NUR ---
MS RN NOTES PATIENT ALERT AND ORIENTED X 3, NORTH KOREAN SPEAKING ONLY. PATIENT ON ROOM AIR WITH NO SIGNS OF RESPIRATORY DISTRESS WITH EVEN NON-LABORED BREATHING. PATIENT IV ACCESS INTACT AND PATENT, RUNNING NS AT 75 ml/hr. PATIENT SKIN KEPT CLEAN AND DRY, PROVIDED COMFORT MEASURES AND MET ALL OF PATIENT NEEDS. PIKE CATHETER IN PLACE WITH CLEAR, YELLOW URINE OUTPUT. SAFETY PRECAUTIONS IMPLEMENTED WITH BED IN THE LOWEST POSITION, BILATERAL SIDE RAILS UP, BED LOCKED, BED ALARM ON, AND CALL LIGHT WITHIN EASY REACH OF THE PATIENT. WILL ENDORSE BELINDA TO UPCOMING DAYSHIFT NURSE.
[2019-11-15 07:15] LABS: CALCIUM, SERUM 8.4 mg/dL (8.5-10.1); CREATININE 0.6 mg/dL (0.6-1.3); POTASSIUM 4.4 mmol/L (3.5-5.1)
--- NOTE | 2019-11-15 07:20 | NUR ---
MS RN OPENING NOTES RECEIVED PATIENT IN BED, AWAKE, A/O X2. PATIENT ON ROOM AIR BREATHING NORMAL WITH NO SIGNS OF ACUTE DISTRESS OR SOB AT THIS TIME. NO SIGNS OF PAIN SUCH FACIAL GRIMACING OR GUARDING NOTED. PIKE CATH IN PLACE; YELLOW URINE DRAINING TO GRAVITY. SAFETY PRECAUTIONS IN PLACE; BED IN LOW POSITION AND LOCKED, RAILS UP X2, CALL LIGHT WITHIN REACH. WILL CONTINUE TO MONITOR PATIENT.
[2019-11-15] MEDS: PANTOPRAZOLE 40 MG TABLET.DR PO SCH (07:50)
[2019-11-15 08:00] VITALS: BP 131/76
--- NOTE | 2019-11-15 08:03 | NUR ---
MS RN NOTES FED THE PATIENT. PATIENT SAID SHE IS STILL CONSTIPATED AND WANTS MEDICATION FOR CONSTIPATION. WILL ADMINISTER PRN MILK OF MAGNESIA. WILL KEEP MONITORING.
[2019-11-15] MEDS: MAGNESIUM HYDROXIDE 30 ML UDC PO PRN ×2 (08:07→16:22)
[2019-11-15] MEDS: FOLIC ACID 1 MG TABLET PO SCH (08:14)
[2019-11-15] MEDS: ENOXAPARIN SODIUM 40 MG/0.4 ML DISP.SYRIN SQ SCH (08:14)
--- NOTE | 2019-11-15 11:28 | NUR ---
MS RN NOTES PATIENT REPORTS SEVERE PAIN 8 OUT OF 10. REQUESTED PAIN MEDICATION. PRN NORCO 10-325 ADMINISTERED. WILL REASSESS.
[2019-11-15] MEDS ORDERED: IOHEXOL-300 100 ML VIAL IV ONE (13:12)
[2019-11-15] MEDS ORDERED: IV NS 0.9% 250 ML IV ONE (13:12)
--- NOTE | 2019-11-15 15:28 | NUR ---
MS RN NOTES PATIENT REPORTS SEVERE PAIN 10 OUT OF 10 IN HER BACK. REQUESTED PAIN MEDICATION. PRN MORPHINE 2 MG ADMINISTERED. WILL REASSESS.
[2019-11-15 16:00] VITALS: BP 146/66
[2019-11-15] MEDS ORDERED: GADOTERIDOL 279.3 MG/ML VIAL IV ONE (18:49)
--- NOTE | 2019-11-15 19:51 | NUR ---
MS HAZARD WASTE HANDLER NOTES PATIENT TRANSFERED TO [facility] FOR FURTHER EVALUATION AND POSSIBLE PROCEDURE IN MEDICALLY STABLE CONDITION. VITAL SIGNS WNL. ALL DOCUMENTATION READY AND SIGNED BY PATIENT. PATIENT RECEIVED ALL INSTRUCTIONS AND FAMILY MEMBERS NOTIFIED. VALUABLE FORM SIGNED. REPORT GIVEN TO SANDEEP AT [facility]. PATIENT LEFT THE FLOOR VIA GURNEY ACCOMPANIED BY 2 escalation engineer.
[2019-11-16 12:08] LABS: *IFEU ALPHA-2-GLOBULIN 18.6 % (.)
[2019-11-17 06:06] LABS: HIV SCRN 4G wRFX Non Reactive (Non Reactive)
== END 2019-11-15 18:50 | disposition short-term general hospital (02) | DRG 871 ==
LOC: ER 17:43 → MED 20:39
PROVIDERS: ADMIT Registered Nurse; ATTEND Internal Medicine
DX: A40.9 Streptococcal sepsis, unspecified (principal); N17.0 Acute kidney failure with tubular necrosis; M46.24 Osteomyelitis of vertebra, thoracic region; E87.1 Hypo-osmolality and hyponatremia; G20 Parkinson's disease; E78.5 Hyperlipidemia, unspecified; I10 Essential (primary) hypertension; K21.9 Gastro-esophageal reflux disease without esophagitis; M48.54XS Collapsed vertebra, not elsewhere classified, thoracic region, sequela of fracture; M46.44 Discitis, unspecified, thoracic region; D50.9 Iron deficiency anemia, unspecified; D47.3 Essential (hemorrhagic) thrombocythemia; R74.0 Nonspecific elevation of levels of transaminase and lactic acid dehydrogenase [LDH]; E86.1 Hypovolemia; R53.1 Weakness; E66.9 Obesity, unspecified; Z68.28 Body mass index [BMI] 28.0-28.9, adult; M47.26 Other spondylosis with radiculopathy, lumbar region; G89.4 Chronic pain syndrome; E86.0 Dehydration; E11.69 Type 2 diabetes mellitus with other specified complication
CPT/HCPCS: 36415; 70450-TC; 71045-TC; 71260-TC; 72131-TC; 72157-TC; 72158-TC; 77075-TC; 80048-TC; 80061-TC; 80076-TC; 81000-TC; 82105; 82378; 82728-TC; 82784; 83540-TC; 83690-TC; 83735-TC; 84100-TC; 84155; 84165; 84443-TC; 84484-TC; 85025-TC; 85730-TC; 86301; 86334; 86706; 86803; 87040-TC; 87081-TC; 87086-TC; 87186-TC; 87340; 93307-TC; A9579; G0378; J0696; J1650; J2270; J2405; J3370; J3475; J7030; J7040; J7050; J7060; Q9967

== ENCOUNTER 2024-03-24 20:35 | Inpatient (IN) | payer MEDICARE, OTHER ==
[~2024-03-24] VITALS: Ht 154.9 cm; Wt 82.1 kg
[~2024-03-24 20:35] MED LIST changes: +ACET-54 PO; -ALEN70TA6 PO; +AMAN100T PO; +AMLO-212 PO; -BLOO-668 IN; -DEXL60CA3 PO; +ESCI20TA PO; +HYDR12.55 PO; +LORA-258 PO; -MECL-159 PO; -MELO-107 PO; -METF500T20 PO; -METO-295 PO; -OLOP2.5D EACHEYE; +OMEP40CA21 PO; -RANI150T8 PO; -SERT50TA12 PO; -TIMO5DRO4 EACHEYE; -TRAM50TA2 PO; -VALS1TAB6 PO
[2024-03-24 21:20] LABS: BASOPHILS # (AUTO) 0.1 K/uL (0.0-0.2); BASOPHILS % (AUTO) 0.9 % (0.0-2.0); EOSINOPHILS # (AUTO) 0.2 K/uL (0.0-0.7); EOSINOPHILS % (AUTO) 2.2 % (0.0-6.0); HEMATOCRIT 36 % (33-45); LYMPHOCYTES # (AUTO) 2.5 K/uL (0.8-4.8); LYMPHOCYTES % (AUTO) 26.8 % (20.0-44.0); MEAN CORPUSCULAR HEMOGLOBIN 28 PG (26.0-33.0); MEAN CORPUSCULAR HGB CONC 33 g/dl (31.0-36.0); MEAN CORPUSCULAR VOLUME 86 fL (82-100); MONOCYTES # (AUTO) 0.7 K/uL (0.1-1.30); MONOCYTES % (AUTO) 7.7 % (2.0-12.0); NEUTROPHILS # (AUTO) 5.8 K/uL (1.8-8.9); NEUTROPHILS % (AUTO) 62.4 % (43.0-81.0); PLATELET COUNT (AUTO) 236 K/uL (150-450); RED BLOOD CELL COUNT(AUTO) 4.26 MIL/uL (4.0-5.2); RED CELL DISTRIBUTION WIDTH 13.8 % (11.5-15.0); WHITE BLOOD COUNT (AUTO) 9.2 K/uL (4.3-11.0)
[2024-03-24 21:26] LABS: POTASSIUM 4.7 mmol/L (3.5-5.1)
[2024-03-24 21:28] LABS: CALCIUM, SERUM 9.5 mg/dL (8.5-10.1); CARBON DIOXIDE 29 mmol/L (21-32); CHLORIDE 105 mmol/L (98-107); CREATININE 0.9 mg/dL (0.6-1.3); GLUCOSE 138 mg/dL (74-106); SODIUM SERUM 138 mmol/L (136-145); UREA NITROGEN, BLOOD 30 mg/dL (7-18)
[2024-03-24 21:40] LABS: NT-PRO BNP 2323 pg/mL (0-125)
[2024-03-24] MEDS ORDERED: FUROSEMIDE 40 MG/4 ML VIAL ONE (22:14)
[2024-03-24] MEDS: FUROSEMIDE 40 MG/4 ML VIAL IV ONE (22:37)
[2024-03-24] MEDS ORDERED: hydrALAZINE HCL IV 20 MG VIAL IV PRN (23:00)
[2024-03-24] MEDS ORDERED: ONDANSETRON HCL/PF 4 MG/2 ML VIAL IVP PRN (23:00)
[2024-03-24] MEDS ORDERED: MORPHINE SULFATE INJ 2 MG/ML DISP.SYRIN IV PRN (23:00)
[2024-03-24] MEDS ORDERED: LORAZEPAM 0.5 MG TABLET PO PRN (23:00)
[2024-03-25] VITALS (9 sets, daily range): BP systolic 113–138; BP diastolic 46–83; TEMP 97.5–98.3; O2SAT 93–98
[2024-03-25] MEDS ORDERED: DEXTROSE 50%-WATER 50 ML DISP.SYRIN IV PRN
[2024-03-25] MEDS ORDERED: SIMV-46 PO (02:43)
[2024-03-25] MEDS ORDERED: METF-440 PO (02:43)
[2024-03-25] MEDS ORDERED: OMEP40CA21 PO (02:43)
[2024-03-25] MEDS ORDERED: GABA300C PO (02:43)
[2024-03-25] MEDS ORDERED: ARIP2TAB19 PO (02:43)
[2024-03-25] MEDS ORDERED: METO25TA6 PO (02:43)
[2024-03-25] MEDS ORDERED: ASPI-1169 PO (02:43)
[2024-03-25] MEDS ORDERED: MV-M1TAB18 PO (02:43)
[2024-03-25] MEDS ORDERED: FURO-145 PO (02:43)
[2024-03-25] MEDS ORDERED: MECL-126 PO (02:43)
[2024-03-25] MEDS ORDERED: DULO60CA64 PO (02:43)
[2024-03-25] MEDS ORDERED: LORA-259 PO (02:43)
[2024-03-25] MEDS ORDERED: VALS1TAB4 PO (02:43)
[2024-03-25 06:39] LABS: BASOPHILS # (AUTO) 0.1 K/uL (0.0-0.2); EOSINOPHILS # (AUTO) 0.2 K/uL (0.0-0.7); EOSINOPHILS % (AUTO) 2.3 % (0.0-6.0); HEMATOCRIT 39 % (33-45); HEMOGLOBIN 12.7 g/dL (11.5-14.8); LYMPHOCYTES # (AUTO) 2.2 K/uL (0.8-4.8); LYMPHOCYTES % (AUTO) 25.6 % (20.0-44.0); MEAN CORPUSCULAR HEMOGLOBIN 28 PG (26.0-33.0); MEAN CORPUSCULAR HGB CONC 33 g/dl (31.0-36.0); MEAN CORPUSCULAR VOLUME 87 fL (82-100); MONOCYTES # (AUTO) 0.6 K/uL (0.1-1.30); MONOCYTES % (AUTO) 7.3 % (2.0-12.0); NEUTROPHILS # (AUTO) 5.4 K/uL (1.8-8.9); NEUTROPHILS % (AUTO) 63.8 % (43.0-81.0); PLATELET COUNT (AUTO) 231 K/uL (150-450); RED BLOOD CELL COUNT(AUTO) 4.47 MIL/uL (4.0-5.2); RED CELL DISTRIBUTION WIDTH 13.8 % (11.5-15.0); WHITE BLOOD COUNT (AUTO) 8.4 K/uL (4.3-11.0)
[2024-03-25 07:44] LABS: ALANINE AMINOTRANSFERASE < 6 U/L (12-78); ALBUMIN 3.1 g/dL (3.4-5.0); ALKALINE PHOSPHATASE 76 U/L (46-116); ASPARTATE AMINOTRANSFERASE 12 U/L (15-37); BILIRUBIN,TOTAL 0.5 mg/dL (0.2-1.0); CALCIUM, SERUM 9.4 mg/dL (8.5-10.1); CARBON DIOXIDE 28 mmol/L (21-32); CHLORIDE 105 mmol/L (98-107); CREATININE 0.8 mg/dL (0.6-1.3); GLUCOSE 127 mg/dL (74-106); MAGNESIUM 1.9 mg/dL (1.8-2.4); PHOSPHORUS 4.1 mg/dL (2.5-4.9); POTASSIUM 3.8 mmol/L (3.5-5.1); SODIUM SERUM 144 mmol/L (136-145); TOTAL PROTEIN, SERUM 7.6 g/dL (6.4-8.2); UREA NITROGEN, BLOOD 25 mg/dL (7-18)
[2024-03-25] MEDS: BLOOD SUGAR DIAGNOSTIC 1 EACH STRIP IN SCH (08:23)
[2024-03-25] MEDS: PANTOPRAZOLE 40 MG/PACK PACK GT SCH (08:23)
[2024-03-25] MEDS: INSULIN REGULAR, HUMAN 100 UNIT/ML 3 ML VIAL SQ PRN (08:32)
[2024-03-25] MEDS ORDERED: Medication Not On Formulary EA (Omeprazole 1 CAP) PO SCH (09:00)
[2024-03-25] MEDS ORDERED: SIMVASTATIN 20 MG TABLET PO SCH (09:00)
[2024-03-25] MEDS: FUROSEMIDE 20 MG/2 ML VIAL IV SCH (09:18)
[2024-03-25] MEDS: ESCITALOPRAM OXALATE (10 MG) 10 MG TABLET PO SCH (09:21)
[2024-03-25] MEDS: AMLODIPINE BESYLATE 5 MG TABLET PO SCH (09:22)
[2024-03-25] MEDS: HYDROCHLOROTHIAZIDE 25 MG TABLET PO SCH (09:22)
[2024-03-25 09:23] LABS: THYROID STIMULATING HORMONE 3.49 uIU/mL (0.358-3.74)
[2024-03-25] MEDS: ARIPIPRAZOLE 2 MG TABLET PO SCH (09:32)
[2024-03-25] MEDS: HEPARIN SODIUM, PORCINE 5000 UNITS/1 ML VIAL SQ SCH (09:32)
[2024-03-25] MEDS: ASPIRIN 81 MG TAB.CHEW PO SCH (09:38)
[2024-03-25] MEDS: METFORMIN 500 MG TABLET PO SCH (09:38)
[2024-03-25] MEDS: DULOXETINE HCL 30 MG CAPSULE.DR PO SCH (09:39)
[2024-03-25] MEDS: GABAPENTIN 300 MG CAPSULE PO SCH (09:39)
[2024-03-25] MEDS: METOPROLOL TARTRATE 25 MG TABLET PO SCH (09:44)
[2024-03-25] MEDS ORDERED: IPRATROPIUM NEB FS 0.5 MG/2.5 ML AMPUL.NEB NEB PRN (12:30)
[2024-03-25] MEDS ORDERED: ALBUTEROL FS 2.5 MG/3 ML VIAL.NEB NEB PRN (12:30)
[2024-03-25] MEDS: NOURIANZ PO SCH (15:52)
[2024-03-25] MEDS: CARBIDOPA PO SCH (16:02)
[2024-03-25] MEDS: LEVODOPA PO SCH (16:02)
[2024-03-25] MEDS: IPRATROPIUM NEB FS 0.5 MG/2.5 ML AMPUL.NEB NEB PRN (16:36)
[2024-03-25] MEDS: ALBUTEROL FS 2.5 MG/0.5 ML VIAL.NEB NEB PRN (16:36)
[2024-03-25] MEDS: SIMVASTATIN 20 MG TABLET PO SCH (21:07)
[2024-03-25] MEDS: ACETAMINOPHEN 325 MG TABLET PO PRN (21:07)
[2024-03-26] VITALS: BP 108/71; TEMP 98.1; O2SAT 97
[2024-03-26 04:00] VITALS: BP 109/61; TEMP 97.5; O2SAT 100
[2024-03-26 06:41] LABS: BASOPHILS # (AUTO) 0.1 K/uL (0.0-0.2); BASOPHILS % (AUTO) 0.7 % (0.0-2.0); EOSINOPHILS # (AUTO) 0.2 K/uL (0.0-0.7); EOSINOPHILS % (AUTO) 2.2 % (0.0-6.0); HEMATOCRIT 39 % (33-45); HEMOGLOBIN 12.8 g/dL (11.5-14.8); LYMPHOCYTES # (AUTO) 2.1 K/uL (0.8-4.8); LYMPHOCYTES % (AUTO) 27.1 % (20.0-44.0); MEAN CORPUSCULAR HEMOGLOBIN 28 PG (26.0-33.0); MEAN CORPUSCULAR HGB CONC 33 g/dl (31.0-36.0); MEAN CORPUSCULAR VOLUME 88 fL (82-100); MONOCYTES # (AUTO) 0.6 K/uL (0.1-1.30); NEUTROPHILS # (AUTO) 4.9 K/uL (1.8-8.9); PLATELET COUNT (AUTO) 234 K/uL (150-450); RED BLOOD CELL COUNT(AUTO) 4.49 MIL/uL (4.0-5.2); RED CELL DISTRIBUTION WIDTH 13.9 % (11.5-15.0); WHITE BLOOD COUNT (AUTO) 7.9 K/uL (4.3-11.0)
[2024-03-26 06:46] LABS: CALCIUM, SERUM 9.3 mg/dL (8.5-10.1); CARBON DIOXIDE 30 mmol/L (21-32); CHLORIDE 102 mmol/L (98-107); CREATININE 1.2 mg/dL (0.6-1.3); GLUCOSE 123 mg/dL (74-106); MAGNESIUM 1.9 mg/dL (1.8-2.4); PHOSPHORUS 6.2 mg/dL (2.5-4.9); POTASSIUM 3.8 mmol/L (3.5-5.1); SODIUM SERUM 141 mmol/L (136-145); UREA NITROGEN, BLOOD 38 mg/dL (7-18)
[2024-03-26 08:00] VITALS: BP 123/55; TEMP 97.7; O2SAT 100
[2024-03-26] MEDS: VALSARTAN 80 MG TABLET PO SCH (08:52)
[2024-03-26] MEDS ORDERED: HYDROCHLOROTHIAZIDE 25 MG TABLET PO SCH (09:00)
[2024-03-26 10:31] LABS: APPEARANCE,URINE SLIGHTLY CLOUDY (CLEAR); BILIRUBIN,URINE NEGATIVE (NEGATIVE); BLOOD, URINE TRACE-INTA Ery/uL (NEGATIVE); COLOR,URINE YELLOW (YELLOW); KETONES,URINE TRACE mg/dL (NEGATIVE); LEUKOCYTE ESTERASE ,URINE 2+ (NEGATIVE); NITRITE, URINE NEGATIVE (NEGATIVE); PH,URINE 5.5 (5.0-8.0); PROTEIN,URINE TRACE mg/dl (NEGATIVE); UGLUCOSE NEGATIVE (NEGATIVE); UROBILINOGEN,URINE 0.2 EU/dL (0.2)
[2024-03-26 10:32] LABS: CREATININE, URINE 197.7 MG/DL (30.0-125.0); URINE TOTAL PROTEIN 28.7 mg/dL (0-11.9)
[2024-03-26 11:23] LABS: WBC,URINE 21-50 /HPF (0-3)
[2024-03-26 11:24] LABS: ADD URINE CULTURE YES; BACTERIA,URINE 2+ /HPF (None Seen); CALCIUM OXALATE CRYSTALS,UR Few /HPF (None Seen); MUCUS,URINE Few /LPF (None Seen)
[2024-03-26 11:37] LABS: EOSINOPHIL,URINE None Seen
[2024-03-26 13:07] LABS: *SPE A/G RATIO 0.9 (0.7-1.7); *SPE ALBUMIN 3.4 g/dL (2.9-4.4); *SPE ALPHA-1-GLOBULIN 0.3 g/dL (0.0-0.4); *SPE BETA GLOBULIN 1.1 g/dL (0.7-1.3); *SPE GLOBULIN, TOTAL 3.9 g/dL (2.2-3.9); *SPE M-SPIKE Not Observed g/dL (Not Observed); *SPE PROTEIN TOTAL 7.3 g/dL (6.0-8.5); *SPEGAMMA GLOBULIN 1.4 g/dL (0.4-1.8)
[2024-03-26 16:00] VITALS: BP 113/54; TEMP 97.7; O2SAT 95
[2024-03-26 20:00] VITALS: BP 118/47; TEMP 97.5; O2SAT 94
[2024-03-27 04:00] VITALS: BP 125/55; TEMP 98.1; O2SAT 94
[2024-03-27 06:04] LABS: BASOPHILS # (AUTO) 0.1 K/uL (0.0-0.2); BASOPHILS % (AUTO) 1.2 % (0.0-2.0); EOSINOPHILS # (AUTO) 0.3 K/uL (0.0-0.7); EOSINOPHILS % (AUTO) 2.8 % (0.0-6.0); HEMATOCRIT 37 % (33-45); HEMOGLOBIN 12.3 g/dL (11.5-14.8); LYMPHOCYTES # (AUTO) 2.5 K/uL (0.8-4.8); LYMPHOCYTES % (AUTO) 27.5 % (20.0-44.0); MEAN CORPUSCULAR HEMOGLOBIN 28 PG (26.0-33.0); MEAN CORPUSCULAR HGB CONC 33 g/dl (31.0-36.0); MEAN CORPUSCULAR VOLUME 87 fL (82-100); MONOCYTES # (AUTO) 0.5 K/uL (0.1-1.30); NEUTROPHILS # (AUTO) 5.8 K/uL (1.8-8.9); NEUTROPHILS % (AUTO) 62.5 % (43.0-81.0); PLATELET COUNT (AUTO) 242 K/uL (150-450); RED BLOOD CELL COUNT(AUTO) 4.33 MIL/uL (4.0-5.2); RED CELL DISTRIBUTION WIDTH 13.9 % (11.5-15.0); WHITE BLOOD COUNT (AUTO) 9.2 K/uL (4.3-11.0)
[2024-03-27 06:35] LABS: ALANINE AMINOTRANSFERASE < 6 U/L (12-78); ALBUMIN 3.1 g/dL (3.4-5.0); ALKALINE PHOSPHATASE 72 U/L (46-116); ASPARTATE AMINOTRANSFERASE 17 U/L (15-37); BILIRUBIN,TOTAL 0.5 mg/dL (0.2-1.0); CALCIUM, SERUM 9.4 mg/dL (8.5-10.1); CARBON DIOXIDE 28 mmol/L (21-32); CHLORIDE 101 mmol/L (98-107); CREATININE 1.2 mg/dL (0.6-1.3); GLUCOSE 131 mg/dL (74-106); MAGNESIUM 1.9 mg/dL (1.8-2.4); PHOSPHORUS 5.5 mg/dL (2.5-4.9); POTASSIUM 4.1 mmol/L (3.5-5.1); SODIUM SERUM 140 mmol/L (136-145); TOTAL PROTEIN, SERUM 7.7 g/dL (6.4-8.2); UREA NITROGEN, BLOOD 58 mg/dL (7-18)
[2024-03-27 06:38] LABS: CREATINE KINASE, TOTAL 84 U/L (26-192)
[2024-03-27 08:00] VITALS: BP 114/70; TEMP 98.2; O2SAT 96
[2024-03-27 12:00] VITALS: BP 115/70; TEMP 98.2; O2SAT 96
[2024-03-30 09:11] LABS: *SPE A/G RATIO 0.9 (0.7-1.7); *SPE ALBUMIN 3.3 g/dL (2.9-4.4); *SPE ALPHA-1-GLOBULIN 0.3 g/dL (0.0-0.4); *SPE ALPHA-2-GLOBULIN 1.1 g/dL (0.4-1.0); *SPE GLOBULIN, TOTAL 3.7 g/dL (2.2-3.9); *SPE M-SPIKE Not Observed g/dL (Not Observed); *SPEGAMMA GLOBULIN 1.3 g/dL (0.4-1.8)
== END 2024-03-27 15:02 | disposition home health service (06) | DRG 291 ==
LOC: ER 20:38 → TELE1 03-25 00:53 → MEDSG1 03-26 09:34 → UNDODISIN 03-27 15:33
PROVIDERS: ADMIT Internal Medicine; ATTEND Nurse Practitioner Acute Care
DX: I11.0 Hypertensive heart disease with heart failure (principal); I50.33 Acute on chronic diastolic (congestive) heart failure; N17.9 Acute kidney failure, unspecified; F41.9 Anxiety disorder, unspecified; I48.91 Unspecified atrial fibrillation; G47.33 Obstructive sleep apnea (adult) (pediatric); E66.9 Obesity, unspecified; E78.5 Hyperlipidemia, unspecified; Z68.34 Body mass index [BMI] 34.0-34.9, adult; G20.A1 Parkinson's disease without dyskinesia, without mention of fluctuations; E11.9 Type 2 diabetes mellitus without complications
CPT/HCPCS: 36415; 71045-TC; 80048-TC; 80053-TC; 80061-TC; 81001; 82550-TC; 82570-TC; 82728-TC; 82962-TC; 83540-TC; 83735-TC; 83880; 84100-TC; 84155; 84165; 84300-TC; 84439-TC; 84443-TC; 84484-TC; 85025-TC; 87086-TC; 93307-TC; 94799-TC; 97110-TC; 97116-TC; 97530-TC; G0378; J1644; J1815; J1940